=== PATIENT | female | born 1960 | race Caucasian/White ===

== ENCOUNTER 2017-06-27 22:14 | Inpatient (IN) | payer MEDICAID ==
[~2017-06-27] VITALS: Ht 162.6 cm; Wt 83.8 kg
[2017-06-27] MEDS ORDERED: HYDR25TA PO (22:21)
[2017-06-27] MEDS ORDERED: SIMV-260 PO (22:21)
[2017-06-27] MEDS ORDERED: GLIP10 PO (22:21)
[2017-06-27] MEDS ORDERED: LISI-662 PO (22:21)
[2017-06-27] MEDS ORDERED: METF500T4 PO (22:21)
[2017-06-27] MEDS ORDERED: ASPI-1182 PO (22:21)
[2017-06-27 22:28] LABS: GLUCOSE,POINT OF CARE 62 MG/DL (70-110)
[2017-06-27 22:38] LABS: BASOPHILS % (AUTO) 0.1 % (0.0-2.0); EOSINOPHILS % (AUTO) 0.1 % (1.0-6.0); HEMOGLOBIN 11.4 g/dL (12.0-16.0); LYMPHOCYTES % (AUTO) 8.4 % (22.0-44.0); MEAN CORPUSCULAR HGB CONC 34.5 G/dL (31.0-37.0); MEAN CORPUSCULAR VOLUME 87 fL (80-100); MONOCYTES # (AUTO) 0.8 K/uL (0.1-1.0); MONOCYTES % (AUTO) 6.8 % (2.0-9.0); NEUTROPHILS # (AUTO) 10.3 K/uL (1.8-7.7); NEUTROPHILS % (AUTO) 84.6 % (40.0-70.0); PLATELET COUNT (AUTO) 389 K/uL (150-450); RED BLOOD CELL COUNT(AUTO) 3.79 MIL/uL (4.00-5.20); RED CELL DISTRIBUTION WIDTH 12.7 % (11.5-14.5); WHITE BLOOD COUNT (AUTO) 12.2 K/uL (4.5-11.0)
[2017-06-27 22:48] LABS: APPEARANCE,URINE CLEAR (CLEAR); GLUCOSE, URINE (UA) NEGATIVE (NEGATIVE); KETONES,URINE NEGATIVE (NEGATIVE); LEUKOCYTE ESTERASE ,URINE NEGATIVE (NEGATIVE); OCCULT BLOOD,URINE TRACE (NEGATIVE); PROTEIN,URINE NEGATIVE (NEGATIVE)
[2017-06-27 22:50] LABS: ADD UA MICROSCOPIC YES
[2017-06-27 23:07] LABS: ALANINE AMINOTRANSFERASE 25 U/L (12-78); ALBUMIN 3.3 g/dL (3.4-5.0); ANION GAP 11 mmol/L (8-16); ASPARTATE AMINOTRANSFERASE 26 U/L (15-37); BILIRUBIN,TOTAL 0.4 mg/dL (0.1-1.0); CALCIUM, TOTAL 9.1 mg/dL (8.8-10.5); CARBON DIOXIDE 28 mmol/L (22-29); CHLORIDE 86 mmol/L (98-107); CREATININE 0.66 mg/dL (0.60-1.30); GLOMERULAR FILTR. RATE CALC > 60 mL/min (>60); POTASSIUM 3.7 mmol/L (3.5-5.1); SODIUM SERUM 125 mmol/L (136-145); TOTAL PROTEIN, SERUM 8.2 g/dL (6.4-8.2); UREA NITROGEN, BLOOD 14 mg/dL (7-18)
[2017-06-27 23:20] LABS: SQUAMOUS EPITHELIAL CELL,UR Moderate /LPF (None Seen)
[2017-06-28] MEDS ORDERED: BARIUM SULFATE 0.1% SUSPENSION 450 ML BOTTLE PO ONE
[2017-06-28] MEDS ORDERED: ONDANSETRON HCL 4 MG/2 ML VIAL IVP ONE
[2017-06-28] MEDS ORDERED: SODIUM CHLORIDE 0.9% 1,000 ML IV ONE
[2017-06-28 00:01] LABS: GLUCOSE,POINT OF CARE 70 MG/DL (70-110)
[2017-06-28] MEDS ORDERED: IOVERSOL 350 MG/ML 100 ML VIAL ONE (00:22)
[2017-06-28] MEDS ORDERED: DEXTROSE 50%-WATER 25 GM/50 ML SYRINGE IVP ONE ×2 (02:15→05:30)
[2017-06-28 02:16] LABS: GLUCOSE,POINT OF CARE 46 MG/DL (70-110)
[2017-06-28 02:57] LABS: GLUCOSE,POINT OF CARE 138 MG/DL (70-110)
[2017-06-28] MEDS ORDERED: ONDANSETRON HCL 4 MG/2 ML VIAL IVP PRN (03:30)
[2017-06-28] MEDS ORDERED: 0.9% SODIUM CHLORIDE 10 ML SYRINGE IVP PRN (03:30)
[2017-06-28] MEDS ORDERED: DEXTROSE 5%-0.9% SODIUM CHL 1,000 ML IV ONE (03:30)
[2017-06-28 04:12] LABS: GLUCOSE COMMENT 1 Doctor Notified; GLUCOSE,POINT OF CARE 48 MG/DL (70-110)
[2017-06-28 04:58] VITALS: BP 126/65
[2017-06-28 05:01] LABS: OSMOLALITY 255 mOS/kg (270-310)
[2017-06-28 05:10] LABS: THYROID STIMULATING HORMONE 0.41 uIU/mL (0.36-3.74)
[2017-06-28 05:13] LABS: GLUCOSE,POINT OF CARE 72 MG/DL (70-110)
[2017-06-28] MEDS ORDERED: DEXTROSE 10%-WATER 1,000 ML IV ONE (05:30)
[2017-06-28] MEDS: ACETAMINOPHEN 325 MG TABLET PO PRN ×4 (05:37→21:24)
[2017-06-28 06:47] LABS: GLUCOSE,POINT OF CARE 160 MG/DL (70-110)
[2017-06-28 08:06] VITALS: BP 122/57
[2017-06-28 11:28] VITALS: BP 122/65
[2017-06-28 15:22] VITALS: BP 139/67
[2017-06-28 15:27] LABS: GLUCOSE,POINT OF CARE 84 MG/DL (70-110)
[2017-06-28 15:27] LABS: GLUCOSE,POINT OF CARE 148 MG/DL (70-110)
[2017-06-28 15:27] LABS: GLUCOSE,POINT OF CARE 131 MG/DL (70-110)
[2017-06-28 19:27] LABS: GLUCOSE,POINT OF CARE 120 MG/DL (70-110)
[2017-06-28 21:04] VITALS: BP 136/49
[2017-06-28] MEDS: LEVOFLOXACIN 500 MG/D5% WATER 100 ML IV SCH (22:38)
[2017-06-29 00:11] VITALS: BP 113/40
[2017-06-29] MEDS ORDERED: DEXTROSE 50%-WATER 25 GM/50 ML SYRINGE IVP PRN (02:30)
[2017-06-29 05:55] VITALS: BP 126/70
[2017-06-29] MEDS: ACETAMINOPHEN 325 MG TABLET PO PRN ×2 (06:04→17:57)
[2017-06-29 06:07] LABS: BASOPHILS % (AUTO) 0.2 % (0.0-2.0); EOSINOPHILS % (AUTO) 0.1 % (1.0-6.0); HEMOGLOBIN 10.5 g/dL (12.0-16.0); LYMPHOCYTES % (AUTO) 6.9 % (22.0-44.0); MEAN CORPUSCULAR HEMOGLOBIN 30.4 pg (26.0-34.0); MEAN CORPUSCULAR HGB CONC 34.9 G/dL (31.0-37.0); MEAN CORPUSCULAR VOLUME 87 fL (80-100); MONOCYTES # (AUTO) 1.3 K/uL (0.1-1.0); MONOCYTES % (AUTO) 9.3 % (2.0-9.0); NEUTROPHILS # (AUTO) 11.8 K/uL (1.8-7.7); NEUTROPHILS % (AUTO) 83.5 % (40.0-70.0); PLATELET COUNT (AUTO) 346 K/uL (150-450); RED BLOOD CELL COUNT(AUTO) 3.44 MIL/uL (4.00-5.20); RED CELL DISTRIBUTION WIDTH 13.3 % (11.5-14.5); WHITE BLOOD COUNT (AUTO) 14.1 K/uL (4.5-11.0)
[2017-06-29 06:22] LABS: ANION GAP 7 mmol/L (8-16); CALCIUM, TOTAL 8.3 mg/dL (8.8-10.5); CARBON DIOXIDE 29 mmol/L (22-29); CHLORIDE 90 mmol/L (98-107); CREATININE 0.95 mg/dL (0.60-1.30); GLOMERULAR FILTR. RATE CALC > 60 mL/min (>60); POTASSIUM 4.6 mmol/L (3.5-5.1); SODIUM SERUM 126 mmol/L (136-145); UREA NITROGEN, BLOOD 8 mg/dL (7-18)
[2017-06-29 07:35] VITALS: BP 110/51
[2017-06-29] MEDS: LISINOPRIL 20 MG TABLET PO SCH (10:03)
[2017-06-29] MEDS: CefTRIAXone 1 GM/DEXTROSE 50 ML IV SCH (10:04)
[2017-06-29] MEDS: ASPIRIN 81 MG EC TABLET PO SCH (10:04)
[2017-06-29] MEDS: SODIUM CHLORIDE 0.9% 1,000 ML IV SCH (10:04)
[2017-06-29 11:22] LABS: GLUCOSE COMMENT 1 Juice/Food/D50 Given; GLUCOSE,POINT OF CARE 214 MG/DL (70-110)
[2017-06-29 11:22] LABS: GLUCOSE,POINT OF CARE 148 MG/DL (70-110)
[2017-06-29 11:46] VITALS: BP 114/53
[2017-06-29 13:52] LABS: GLUCOSE COMMENT 1 Received Meds; GLUCOSE,POINT OF CARE 277 MG/DL (70-110)
[2017-06-29 15:15] VITALS: BP 127/53
[2017-06-29] MEDS: INSULIN ASPART 100 UNITS/ML SQ PRN ×2 (18:18→20:13)
[2017-06-29 18:22] LABS: GLUCOSE COMMENT 1 Received Meds; GLUCOSE,POINT OF CARE 217 MG/DL (70-110)
[2017-06-29] MEDS: SIMVASTATIN 20 MG TABLET PO SCH (20:05)
[2017-06-29] MEDS: LEVOFLOXACIN 500 MG/D5% WATER 100 ML IV SCH (20:05)
[2017-06-29 20:32] LABS: GLUCOSE,POINT OF CARE 291 MG/DL (70-110)
[2017-06-29 21:01] VITALS: BP 126/58
[2017-06-29] MEDS ORDERED: ACETAMINOPHEN 325 MG TABLET PO PRN (23:15)
[2017-06-29] MEDS ORDERED: HYDROCODONE/ACETAMINOPHEN 5-325 MG TABLET PO PRN (23:15)
[2017-06-29] MEDS ORDERED: ZOLPIDEM TARTRATE 5 MG TABLET PO PRN (23:15)
[2017-06-29] MEDS ORDERED: ONDANSETRON HCL 4 MG/2 ML VIAL IVP PRN (23:15)
[2017-06-29] MEDS ORDERED: MORPHINE SULFATE 2 MG/ML SYRINGE IVP PRN (23:15)
[2017-06-29] MEDS ORDERED: BISACODYL 10 MG RECTAL RECTAL SUPPOSITORY PR PRN (23:15)
[2017-06-29] MEDS ORDERED: MAGNESIUM HYDROXIDE SUSPENSION 30 ML UDCUP PO PRN (23:15)
[2017-06-29] MEDS ORDERED: IPRATROPIUM BROMIDE 0.5 MG/2.5 ML NEB SOLUTION NEB PRN (23:15)
[2017-06-29] MEDS ORDERED: ALBUTEROL SULFATE 2.5 MG/0.5 ML NEB SOLUTION NEB PRN (23:15)
[2017-06-29] MEDS: HEPARIN SODIUM,PORCINE 5,000 UNITS/ML VIAL SQ SCH (23:49)
[2017-06-30] VITALS (7 sets, daily range): BP systolic 113–137; BP diastolic 48–59
[2017-06-30] MEDS: SODIUM CHLORIDE 0.9% 1,000 ML IV SCH ×3 (04:14→20:48)
[2017-06-30] MEDS: ACETAMINOPHEN 325 MG TABLET PO PRN (04:14)
[2017-06-30 04:27] LABS: GLUCOSE,POINT OF CARE 133 MG/DL (70-110)
[2017-06-30 05:56] LABS: BASOPHILS % (AUTO) 0.2 % (0.0-2.0); EOSINOPHILS % (AUTO) 0.4 % (1.0-6.0); HEMOGLOBIN 9.6 g/dL (12.0-16.0); LYMPHOCYTES # (AUTO) 1.3 K/uL (1.0-4.8); LYMPHOCYTES % (AUTO) 11.6 % (22.0-44.0); MEAN CORPUSCULAR HEMOGLOBIN 30.4 pg (26.0-34.0); MEAN CORPUSCULAR HGB CONC 34.4 G/dL (31.0-37.0); MEAN CORPUSCULAR VOLUME 88 fL (80-100); MONOCYTES # (AUTO) 1.1 K/uL (0.1-1.0); NEUTROPHILS # (AUTO) 8.6 K/uL (1.8-7.7); NEUTROPHILS % (AUTO) 77.8 % (40.0-70.0); PLATELET COUNT (AUTO) 350 K/uL (150-450); RED BLOOD CELL COUNT(AUTO) 3.16 MIL/uL (4.00-5.20); RED CELL DISTRIBUTION WIDTH 13.3 % (11.5-14.5); WHITE BLOOD COUNT (AUTO) 11.1 K/uL (4.5-11.0)
[2017-06-30 07:23] LABS: ALANINE AMINOTRANSFERASE 23 U/L (12-78); ALBUMIN 2.3 g/dL (3.4-5.0); ANION GAP 8 mmol/L (8-16); ASPARTATE AMINOTRANSFERASE 14 U/L (15-37); BILIRUBIN,TOTAL 0.3 mg/dL (0.1-1.0); CALCIUM, TOTAL 8.3 mg/dL (8.8-10.5); CARBON DIOXIDE 26 mmol/L (22-29); CHLORIDE 96 mmol/L (98-107); CREATININE 0.91 mg/dL (0.60-1.30); GLOMERULAR FILTR. RATE CALC > 60 mL/min (>60); POTASSIUM 4.4 mmol/L (3.5-5.1); SODIUM SERUM 130 mmol/L (136-145); TOTAL PROTEIN, SERUM 6.9 g/dL (6.4-8.2); UREA NITROGEN, BLOOD 10 mg/dL (7-18)
[2017-06-30] MEDS: HEPARIN SODIUM,PORCINE 5,000 UNITS/ML VIAL SQ SCH ×3 (08:30→23:28)
[2017-06-30] MEDS: LISINOPRIL 20 MG TABLET PO SCH (08:30)
[2017-06-30] MEDS: PANTOPRAZOLE SODIUM 40 MG/VIAL IVP SCH (08:30)
[2017-06-30] MEDS: ASPIRIN 81 MG EC TABLET PO SCH (08:30)
[2017-06-30] MEDS: CefTRIAXone 1 GM/DEXTROSE 50 ML IV SCH (08:30)
[2017-06-30] MEDS: DOCUSATE SODIUM 100 MG CAPSULE PO SCH ×2 (08:30→20:20)
[2017-06-30 12:03] LABS: GLUCOSE COMMENT 1 Received Meds; GLUCOSE,POINT OF CARE 247 MG/DL (70-110)
[2017-06-30] MEDS: INSULIN ASPART 100 UNITS/ML SQ PRN ×3 (12:13→20:50)
[2017-06-30 17:37] LABS: GLUCOSE COMMENT 1 Received Meds; GLUCOSE,POINT OF CARE 222 MG/DL (70-110)
[2017-06-30] MEDS: SIMVASTATIN 20 MG TABLET PO SCH (20:20)
[2017-06-30] MEDS: LEVOFLOXACIN 500 MG/D5% WATER 100 ML IV SCH (20:48)
[2017-06-30 23:07] LABS: GLUCOSE COMMENT 1 Received Meds; GLUCOSE,POINT OF CARE 203 MG/DL (70-110)
[2017-07-01] MEDS: ACETAMINOPHEN 325 MG TABLET PO PRN ×2 (00:27→11:15)
[2017-07-01 04:37] VITALS: BP 128/58
[2017-07-01] MEDS: INSULIN ASPART 100 UNITS/ML SQ PRN ×3 (05:41→17:18)
[2017-07-01 06:15] LABS: BASOPHILS # (AUTO) 0.03 K/uL (0.00-0.20); BASOPHILS % (AUTO) 0.4 % (0.0-2.0); EOSINOPHILS # (AUTO) 0.14 K/uL (0.00-0.70); EOSINOPHILS % (AUTO) 2.02 % (1.0-6.0); HEMOGLOBIN 9.3 g/dL (12.0-16.0); LYMPHOCYTES # (AUTO) 2.1 K/uL (1.0-4.8); LYMPHOCYTES % (AUTO) 30.7 % (22.0-44.0); MEAN CORPUSCULAR HEMOGLOBIN 29.5 pg (26.0-34.0); MEAN CORPUSCULAR HGB CONC 33.3 G/dL (31.0-37.0); MEAN CORPUSCULAR VOLUME 89 fL (80-100); MONOCYTES # (AUTO) 0.7 K/uL (0.1-1.0); MONOCYTES % (AUTO) 9.5 % (2.0-9.0); NEUTROPHILS % (AUTO) 57.4 % (40.0-70.0); PLATELET COUNT (AUTO) 374 K/uL (150-450); RED BLOOD CELL COUNT(AUTO) 3.16 MIL/uL (4.00-5.20); RED CELL DISTRIBUTION WIDTH 13.7 % (11.5-14.5); WHITE BLOOD COUNT (AUTO) 6.9 K/uL (4.5-11.0)
[2017-07-01 07:15] LABS: ALANINE AMINOTRANSFERASE 21 U/L (12-78); ALBUMIN 2.2 g/dL (3.4-5.0); ANION GAP 9 mmol/L (8-16); ASPARTATE AMINOTRANSFERASE 19 U/L (15-37); BILIRUBIN,TOTAL 0.1 mg/dL (0.1-1.0); CALCIUM, TOTAL 8.4 mg/dL (8.8-10.5); CARBON DIOXIDE 25 mmol/L (22-29); CHLORIDE 101 mmol/L (98-107); CREATININE 0.82 mg/dL (0.60-1.30); GLOMERULAR FILTR. RATE CALC > 60 mL/min (>60); POTASSIUM 4.2 mmol/L (3.5-5.1); SODIUM SERUM 135 mmol/L (136-145); TOTAL PROTEIN, SERUM 6.7 g/dL (6.4-8.2); UREA NITROGEN, BLOOD 10 mg/dL (7-18)
[2017-07-01 08:23] VITALS: BP 119/52
[2017-07-01] MEDS: ASPIRIN 81 MG EC TABLET PO SCH (08:46)
[2017-07-01] MEDS: LISINOPRIL 20 MG TABLET PO SCH (08:46)
[2017-07-01] MEDS: DOCUSATE SODIUM 100 MG CAPSULE PO SCH (08:46)
[2017-07-01] MEDS: HEPARIN SODIUM,PORCINE 5,000 UNITS/ML VIAL SQ SCH ×2 (08:46→16:00)
[2017-07-01] MEDS: CefTRIAXone 1 GM/DEXTROSE 50 ML IV SCH (08:47)
[2017-07-01] MEDS: PANTOPRAZOLE SODIUM 40 MG/VIAL IVP SCH (08:47)
[2017-07-01 10:52] LABS: GLUCOSE COMMENT 1 Received Meds; GLUCOSE,POINT OF CARE 149 MG/DL (70-110)
[2017-07-01 11:30] VITALS: BP 120/58
[2017-07-01 11:48] LABS: GLUCOSE COMMENT 1 Received Meds; GLUCOSE,POINT OF CARE 221 MG/DL (70-110)
[2017-07-01] MEDS ORDERED: LEVO500 PO (13:40)
[2017-07-01 15:16] VITALS: BP 125/63
[2017-07-01 17:47] LABS: GLUCOSE COMMENT 1 Received Meds; GLUCOSE,POINT OF CARE 171 MG/DL (70-110)
== END 2017-07-01 18:00 | disposition home or self-care (01) | DRG 720 ==
LOC: EMS 22:17 → 6N 06-28 03:23
PROVIDERS: ADMIT Hospitalist; ATTEND Hospitalist
DX: A41.9 Sepsis, unspecified organism (principal); J18.9 Pneumonia, unspecified organism; R50.9 Fever, unspecified; E87.1 Hypo-osmolality and hyponatremia; I10 Essential (primary) hypertension; E78.00 Pure hypercholesterolemia, unspecified; E11.9 Type 2 diabetes mellitus without complications; E16.2 Hypoglycemia, unspecified
CPT/HCPCS: 70450; 74177; 82962; 83930; 83935; 84300; 84439; 84443; 87040; 93005; 96361; 96374; 96375; 99285; C9113; J0696; J1644; J1956; J2405; J7030; J7042

== ENCOUNTER 2017-07-05 16:31 | Inpatient (IN) | payer MEDICAID ==
[~2017-07-05] VITALS: Ht 162.6 cm; Wt 84.6 kg
[~2017-07-05 16:31] MED LIST: ASPI-1182 PO; GLIP10 PO; HYDR25TA PO; LEVO500 PO; LISI-662 PO; METF500T4 PO; SIMV-260 PO
[2017-07-05 16:42] LABS: GLUCOSE,POINT OF CARE 147 MG/DL (70-110)
[2017-07-05] MEDS ORDERED: MORPHINE SULFATE 4 MG/ML SYRINGE IVP ONE (17:00)
[2017-07-05] MEDS ORDERED: SODIUM CHLORIDE 0.9% 1,000 ML IV ONE ×2 (17:00→18:30)
[2017-07-05] MEDS ORDERED: ONDANSETRON HCL 4 MG/2 ML VIAL IVP ONE (17:00)
[2017-07-05 17:15] LABS: BASOPHILS # (AUTO) 0.02 K/uL (0.00-0.20); BASOPHILS % (AUTO) 0.3 % (0.0-2.0); EOSINOPHILS # (AUTO) 0.01 K/uL (0.00-0.70); EOSINOPHILS % (AUTO) 0.19 % (1.0-6.0); HEMOGLOBIN 10.9 g/dL (12.0-16.0); LYMPHOCYTES # (AUTO) 1.1 K/uL (1.0-4.8); LYMPHOCYTES % (AUTO) 17.5 % (22.0-44.0); MEAN CORPUSCULAR HEMOGLOBIN 29.6 pg (26.0-34.0); MEAN CORPUSCULAR HGB CONC 34.2 G/dL (31.0-37.0); MEAN CORPUSCULAR VOLUME 87 fL (80-100); MONOCYTES # (AUTO) 0.3 K/uL (0.1-1.0); MONOCYTES % (AUTO) 5.1 % (2.0-9.0); NEUTROPHILS # (AUTO) 4.9 K/uL (1.8-7.7); PLATELET COUNT (AUTO) 536 K/uL (150-450); RED CELL DISTRIBUTION WIDTH 13.3 % (11.5-14.5); WHITE BLOOD COUNT (AUTO) 6.4 K/uL (4.5-11.0)
[2017-07-05 17:31] LABS: ALANINE AMINOTRANSFERASE 60 U/L (12-78); ALBUMIN 3.3 g/dL (3.4-5.0); ASPARTATE AMINOTRANSFERASE 49 U/L (15-37); BILIRUBIN,TOTAL 0.4 mg/dL (0.1-1.0); CALCIUM, TOTAL 9.3 mg/dL (8.8-10.5); CARBON DIOXIDE 30 mmol/L (22-29); CHLORIDE 80 mmol/L (98-107); CREATININE 0.76 mg/dL (0.60-1.30); GLOMERULAR FILTR. RATE CALC > 60 mL/min (>60); POTASSIUM 3.8 mmol/L (3.5-5.1); TOTAL PROTEIN, SERUM 8.3 g/dL (6.4-8.2); UREA NITROGEN, BLOOD 10 mg/dL (7-18)
[2017-07-05 17:38] LABS: ANION GAP 11 mmol/L (8-16)
[2017-07-05 17:41] LABS: SODIUM SERUM 121 mmol/L (136-145)
[2017-07-05 18:20] LABS: APPEARANCE,URINE CLEAR (CLEAR); GLUCOSE, URINE (UA) NEGATIVE (NEGATIVE); KETONES,URINE 40 mg/dL (NEGATIVE); LEUKOCYTE ESTERASE ,URINE NEGATIVE (NEGATIVE); OCCULT BLOOD,URINE NEGATIVE (NEGATIVE); PH,URINE 7.5 (5.0-8.0); PROTEIN,URINE TRACE (NEGATIVE)
[2017-07-05 18:32] LABS: RBC,URINE 0-2 /HPF (0-2); SQUAMOUS EPITHELIAL CELL,UR Few /LPF (None Seen); WBC,URINE 0-2 /HPF (0-5)
[2017-07-05] MEDS ORDERED: KETOROLAC TROMETHAMINE 30 MG/ML VIAL IVP ONE (18:45)
[2017-07-05] MEDS ORDERED: ACETAMINOPHEN 325 MG TABLET PO PRN (20:00)
[2017-07-05] MEDS ORDERED: ONDANSETRON HCL 4 MG/2 ML VIAL IVP PRN (20:00)
[2017-07-05] MEDS ORDERED: 0.9% SODIUM CHLORIDE 10 ML SYRINGE IVP PRN (20:00)
[2017-07-05 20:06] LABS: OSMOLALITY 255 mOS/kg (270-310)
[2017-07-05 20:43] VITALS: BP 148/75
[2017-07-05] MEDS ORDERED: IPRATROPIUM BROMIDE 0.5 MG/2.5 ML NEB SOLUTION NEB PRN (23:15)
[2017-07-05] MEDS ORDERED: ALBUTEROL SULFATE 2.5 MG/0.5 ML NEB SOLUTION NEB PRN (23:15)
[2017-07-05] MEDS ORDERED: HYDROCODONE/ACETAMINOPHEN 5-325 MG TABLET PO PRN (23:15)
[2017-07-05] MEDS ORDERED: MORPHINE SULFATE 2 MG/ML SYRINGE IVP PRN (23:15)
[2017-07-05] MEDS ORDERED: INSULIN ASPART 100 UNITS/ML SQ PRN (23:30)
[2017-07-05] MEDS ORDERED: DEXTROSE 50%-WATER 25 GM/50 ML SYRINGE IVP PRN (23:30)
[2017-07-05 23:57] VITALS: BP 149/66
[2017-07-06] MEDS: HydrALAZINE HCL 20 MG/ML VIAL IVP SCH ×4 (00:06→12:00)
[2017-07-06] MEDS: ACETAMINOPHEN 325 MG TABLET PO PRN ×2 (00:26→14:38)
[2017-07-06] MEDS ORDERED: PNEUMOCOCCAL VACCINE POLYVALENT 0.5 ML VIAL [PPSV23] IM ONE (03:30)
[2017-07-06 04:35] VITALS: BP 149/60
[2017-07-06] MEDS: ONDANSETRON HCL 4 MG/2 ML VIAL IVP PRN ×2 (05:28→11:31)
[2017-07-06] MEDS ORDERED: METOCLOPRAMIDE HCL 5 MG/ML 2 ML VIAL IVP PRN (07:00)
[2017-07-06 07:23] VITALS: BP 128/57
[2017-07-06 07:32] LABS: GLUCOSE,POINT OF CARE 104 MG/DL (70-110)
[2017-07-06 07:32] LABS: GLUCOSE,POINT OF CARE 118 MG/DL (70-110)
[2017-07-06] MEDS: MetFORMIN HCL 500 MG TABLET PO SCH ×2 (08:00→18:00)
[2017-07-06] MEDS: METOPROLOL TARTRATE 25 MG TABLET PO SCH ×2 (09:00→20:11)
[2017-07-06] MEDS ORDERED: LEVOFLOXACIN 500 MG TABLET PO SCH (09:00)
[2017-07-06] MEDS: ASPIRIN 81 MG EC TABLET PO SCH (09:00)
[2017-07-06] MEDS ORDERED: PANTOPRAZOLE SODIUM 40 MG DR TABLET PO SCH (09:00)
[2017-07-06] MEDS: PANTOPRAZOLE SODIUM 40 MG/VIAL IVP SCH (09:44)
[2017-07-06] MEDS: ENOXAPARIN SODIUM 40 MG/0.4 ML PF SYRINGE SQ SCH (09:44)
[2017-07-06 11:22] VITALS: BP 137/48
[2017-07-06 12:00] VITALS: BP 118/48
[2017-07-06] MEDS ORDERED: SODIUM CHLORIDE 0.9% 1,000 ML IV ONE (14:21)
[2017-07-06] MEDS ORDERED: SODIUM CHLORIDE 0.9% 1,000 ML IV SCH (14:30)
[2017-07-06] MEDS: SODIUM CHLORIDE 0.9% 1,000 ML IV SCH (15:07)
[2017-07-06 16:26] VITALS: BP 107/52
[2017-07-06 19:42] VITALS: BP 122/57
[2017-07-06] MEDS ORDERED: SIMVASTATIN 20 MG TABLET PO SCH (21:00)
[2017-07-07 00:24] VITALS: BP 138/61
[2017-07-07 03:52] LABS: GLUCOSE COMMENT 1 Received Meds; GLUCOSE,POINT OF CARE 147 MG/DL (70-110)
[2017-07-07 04:33] VITALS: BP 117/53
[2017-07-07] MEDS: SODIUM CHLORIDE 0.9% 1,000 ML IV SCH (05:04)
[2017-07-07 07:39] LABS: ANION GAP 8 mmol/L (8-16); CALCIUM, TOTAL 8.5 mg/dL (8.8-10.5); CARBON DIOXIDE 28 mmol/L (22-29); CHLORIDE 95 mmol/L (98-107); CREATININE 0.85 mg/dL (0.60-1.30); GLOMERULAR FILTR. RATE CALC > 60 mL/min (>60); POTASSIUM 3.6 mmol/L (3.5-5.1); SODIUM SERUM 131 mmol/L (136-145); UREA NITROGEN, BLOOD 8 mg/dL (7-18)
[2017-07-07 07:47] VITALS: BP 102/50
[2017-07-07] MEDS: ASPIRIN 81 MG EC TABLET PO SCH (08:38)
[2017-07-07] MEDS: MetFORMIN HCL 500 MG TABLET PO SCH (08:38)
[2017-07-07] MEDS: PANTOPRAZOLE SODIUM 40 MG/VIAL IVP SCH (08:39)
[2017-07-07] MEDS: METOPROLOL TARTRATE 25 MG TABLET PO SCH (09:00)
[2017-07-07] MEDS: ENOXAPARIN SODIUM 40 MG/0.4 ML PF SYRINGE SQ SCH (09:00)
[2017-07-07] MEDS: ACETAMINOPHEN 325 MG TABLET PO PRN (10:52)
[2017-07-07 11:19] VITALS: BP 115/50
[2017-07-08 00:27] LABS: GLUCOSE,POINT OF CARE 129 MG/DL (70-110)
[2017-07-08 00:27] LABS: GLUCOSE COMMENT 1 Received Meds; GLUCOSE,POINT OF CARE 150 MG/DL (70-110)
[2017-07-08 00:27] LABS: GLUCOSE COMMENT 1 Received Meds; GLUCOSE,POINT OF CARE 164 MG/DL (70-110)
[2017-07-08 00:27] LABS: GLUCOSE,POINT OF CARE 173 MG/DL (70-110)
== END 2017-07-07 16:15 | disposition home or self-care (01) | DRG 422 ==
LOC: EMS 16:33 → 5S 19:36
PROVIDERS: ADMIT Hospitalist; ATTEND Hospitalist
DX: E87.1 Hypo-osmolality and hyponatremia (principal); E86.0 Dehydration; I10 Essential (primary) hypertension; E86.1 Hypovolemia; E11.9 Type 2 diabetes mellitus without complications; E66.9 Obesity, unspecified; E78.00 Pure hypercholesterolemia, unspecified; N39.0 Urinary tract infection, site not specified; Z68.32 Body mass index [BMI] 32.0-32.9, adult; Z79.82 Long term (current) use of aspirin; Z79.899 Other long term (current) drug therapy
CPT/HCPCS: 71250; 72192; 74150; 80307; 82962; 83036; 83930; 83935; 84295; 84300; 84443; 87040; 93005; 96374; 96375; 99285; C9113; G0480; J0360; J1650; J1885; J2270; J2405; J7030

== ENCOUNTER 2017-07-10 16:12 | Emergency (ER) | payer MEDICAID ==
[~2017-07-10] VITALS: Ht 154.9 cm; Wt 77.3 kg
[~2017-07-10 16:12] MED LIST changes: -GLIP10 PO; -HYDR25TA PO; -LEVO500 PO; -LISI-662 PO
[2017-07-10] MEDS ORDERED: [UNRECOGNIZED DRUG - REMARK] PO (16:20)
[2017-07-10 16:26] LABS: GLUCOSE,POINT OF CARE 187 MG/DL (70-110)
[2017-07-10 16:57] LABS: APPEARANCE,URINE CLEAR (CLEAR); GLUCOSE, URINE (UA) NEGATIVE (NEGATIVE); KETONES,URINE NEGATIVE (NEGATIVE); LEUKOCYTE ESTERASE ,URINE NEGATIVE (NEGATIVE); OCCULT BLOOD,URINE NEGATIVE (NEGATIVE); PROTEIN,URINE NEGATIVE (NEGATIVE)
[2017-07-10 17:00] LABS: ADD UA MICROSCOPIC NO
[2017-07-10 17:33] LABS: BASOPHILS # (AUTO) 0.04 K/uL (0.00-0.20); BASOPHILS % (AUTO) 0.7 % (0.0-2.0); EOSINOPHILS # (AUTO) 0.18 K/uL (0.00-0.70); EOSINOPHILS % (AUTO) 3.05 % (1.0-6.0); HEMATOCRIT 32.4 % (36-46); HEMOGLOBIN 10.8 g/dL (12.0-16.0); LYMPHOCYTES # (AUTO) 1.7 K/uL (1.0-4.8); LYMPHOCYTES % (AUTO) 28.3 % (22.0-44.0); MEAN CORPUSCULAR HEMOGLOBIN 29.4 pg (26.0-34.0); MEAN CORPUSCULAR HGB CONC 33.3 G/dL (31.0-37.0); MEAN CORPUSCULAR VOLUME 88 fL (80-100); MONOCYTES # (AUTO) 0.3 K/uL (0.1-1.0); MONOCYTES % (AUTO) 5.2 % (2.0-9.0); NEUTROPHILS # (AUTO) 3.8 K/uL (1.8-7.7); NEUTROPHILS % (AUTO) 62.7 % (40.0-70.0); PLATELET COUNT (AUTO) 506 K/uL (150-450); RED BLOOD CELL COUNT(AUTO) 3.67 MIL/uL (4.00-5.20)
[2017-07-10 17:46] LABS: ANION GAP 7 mmol/L (8-16); CALCIUM, TOTAL 9.4 mg/dL (8.8-10.5); CARBON DIOXIDE 30 mmol/L (22-29); CHLORIDE 100 mmol/L (98-107); CREATININE 0.72 mg/dL (0.60-1.30); GLOMERULAR FILTR. RATE CALC > 60 mL/min (>60); POTASSIUM 4.4 mmol/L (3.5-5.1); SODIUM SERUM 137 mmol/L (136-145); UREA NITROGEN, BLOOD 12 mg/dL (7-18)
[2017-07-10 17:51] LABS: ALANINE AMINOTRANSFERASE 43 U/L (12-78); ALBUMIN 3.4 g/dL (3.4-5.0); ASPARTATE AMINOTRANSFERASE 25 U/L (15-37); BILIRUBIN,TOTAL 0.2 mg/dL (0.1-1.0); TOTAL PROTEIN, SERUM 7.7 g/dL (6.4-8.2)
[2017-07-10 20:21] VITALS: BP 156/80
== END 2017-07-10 20:30 | disposition home or self-care (01) ==
LOC: EMS 16:13
DX: F43.9 Reaction to severe stress, unspecified (principal); R51 Headache; R42 Dizziness and giddiness; R20.2 Paresthesia of skin; E78.00 Pure hypercholesterolemia, unspecified; E11.9 Type 2 diabetes mellitus without complications; I10 Essential (primary) hypertension
CPT/HCPCS: 82962; 99284